=== PATIENT | female | born 1980 | race Caucasian/White ===

== ENCOUNTER 2017-02-04 15:05 | Emergency (ER) | payer BC | END 2017-02-04 17:06 | disposition home or self-care (01) | LOC: D.ER 15:05 | DX: T78.40XA Allergy, unspecified, initial encounter (principal); X58.XXXA Exposure to other specified factors, initial encounter; I10 Essential (primary) hypertension; R11.0 Nausea ==

== ENCOUNTER 2017-02-05 22:27 | Emergency (ER) | payer BC | END 2017-02-05 23:18 | disposition home or self-care (01) | LOC: D.ER 22:27 | DX: T78.40XA Allergy, unspecified, initial encounter (principal); X58.XXXA Exposure to other specified factors, initial encounter; I10 Essential (primary) hypertension; L50.9 Urticaria, unspecified ==